=== PATIENT | female | born 1995 | race Caucasian/White ===

== ENCOUNTER 2017-07-23 08:55 | Outpatient (CLI) | payer MEDICAID ==
--- NOTE | 2017-07-23 09:49 | Non Stress Test Report ---
Non Stress Test Datetime Report Generated by CPN: 07/23/2017 09:48 DEMOGRAPHIC EGA NST: 38.3 INDICATION Indication for Study: Ordered by Provider MONITORING Monitor Explained: Monitor Explained; Patient Verbalized Understanding Time on Monitor: 07/23/2017 09:11 Time off Monitor: 07/23/2017 09:38 NST Duration: 27 NST INTERVENTIONS NST Interventions: PO Hydration; Reposition Patient Physician Notified NST: C.Suggs, CNM BABY A: [id number] BABY A Movement : Present Contraction Frequency : 12 FHR Baseline : 135 Accelerations : 15X15 Decelerations : None Variability : Moderate 6-25bpm NST Review: Meets Criteria for Reactive NST NST Review and Verified By : PETER WORRELL Results: Reactive NST REPORT Report Trigger: Send Report
[2017-07-23 10:06] LABS: APPEARANCE,URINE SLIGHTLY-CLOUDY; BILIRUBIN,URINE NEGATIVE (NEGATIVE); COLOR,URINE YELLOW; GLUCOSE, URINE NEGATIVE (NEGATIVE); KETONES,URINE NEGATIVE (NEGATIVE); LEUKOCYTE ESTERASE,URINE SMALL (NEGATIVE); NITRITE,URINE NEGATIVE (NEGATIVE); PROTEIN,URINE NEGATIVE (NEGATIVE); URINE SPECIFIC GRAVITY 1.012; UROBILINOGEN,URINE NEGATIVE mg/dL (<2.0)
[2017-07-23 10:18] LABS: ABSOLUTE LYMPHOCYTES (AUTO) 1.2 10^3/uL (0.5-4.7); ABSOLUTE MONOCYTES (AUTO) 0.7 10^3/uL (0.1-1.4); ABSOLUTE NEUT (AUTO) 5.8 10^3/uL (1.7-8.2); BASOPHILS % (AUTO) 0.2 % (0-2); EOSINOPHILS % (AUTO) 0.2 % (0-6); HEMATOCRIT 31.9 % (36.0-47.0); HEMOGLOBIN 10.9 g/dL (12.0-15.5); LYMPHOCYTES % (AUTO) 15.2 % (13-45); MEAN CORPUSCULAR HEMOGLOBIN 31.6 pg (27.0-33.4); MEAN CORPUSCULAR VOLUME 93 fl (80-97); MONOCYTES % (AUTO) 8.5 % (3-13); PLATELET COUNT 203 10^3/uL (150-450); RED BLOOD COUNT 3.44 10^6/uL (3.72-5.28); RED CELL DISTRIBUTION WIDTH 14.2 % (11.5-14.0); SEGMENTED NEUTROPHILS % (AUTO) 75.9 % (42-78); TOTAL CELLS COUNTED % (AUTO) 100 %; WHITE BLOOD COUNT 7.6 10^3/uL (4.0-10.5)
[2017-07-23 10:27] LABS: URINE AMPHETAMINES SCREEN NEGATIVE; URINE BARBITURATES SCREEN NEGATIVE; URINE BENZODIAZEPINES SCREEN NEGATIVE; URINE COCAINE SCREEN NEGATIVE; URINE MARIJUANA (THC) SCREEN NEGATIVE; URINE METHADONE SCREEN NEGATIVE; URINE PHENCYCLIDINE SCREEN NEGATIVE
[2017-07-23 10:33] LABS: UR PRO/CREAT RATIO RESULT 0.1 mg/mg (0.0-0.2); URINE CREATININE 84.3 mg/dL (16-327); URINE PROTEIN 11.6 mg/dL (<12)
[2017-07-23 10:37] LABS: ALANINE AMINOTRANSFERASE 28 U/L (9-52); ALBUMIN 3.3 g/dL (3.5-5.0); ALKALINE PHOSPHATASE 141 U/L (38-126); ANION GAP 11 (5-19); ASPARTATE AMINO TRANSFERASE 24 U/L (14-36); BILIRUBIN,DIRECT 0.2 mg/dL (0.0-0.4); BILIRUBIN,TOTAL 0.2 mg/dL (0.2-1.3); BLOOD UREA NITROGEN 5 mg/dL (7-20); CALCIUM 8.9 mg/dL (8.4-10.2); CARBON DIOXIDE 23 mmol/L (22-30); CHLORIDE 107 mmol/L (98-107); GLUCOSE 75 mg/dL (75-110); LDH 440 U/L (313-618); SODIUM 141.3 mmol/L (137-145)
[2017-07-23 10:38] LABS: POTASSIUM 4.4 mmol/L (3.6-5.0)
== END 2017-07-23 11:02 | disposition home or self-care (01) ==
LOC: LC 08:55
PROVIDERS: ATTEND Obstetrics & Gynecology
PROC: 4A1HXCZ Monitoring of Products of Conception, Cardiac Rate, External Approach (ICD-10-PCS; principal; 2017-07-23)
DX: O47.1 False labor at or after 37 completed weeks of gestation (principal); O13.3 Gestational [pregnancy-induced] hypertension without significant proteinuria, third trimester; Z3A.38 38 weeks gestation of pregnancy
CPT/HCPCS: 36415; 59025; 80053; 80307; 81005; 82570; 83615; 84156; 84550; 85025

== ENCOUNTER 2017-08-01 19:40 | Inpatient (IN) | payer MEDICAID ==
[2017-08-01 20:14] LABS: APPEARANCE,URINE SLIGHTLY-CLOUDY; BILIRUBIN,URINE NEGATIVE (NEGATIVE); COLOR,URINE YELLOW; GLUCOSE, URINE NEGATIVE (NEGATIVE); KETONES,URINE TRACE mg/dL (NEGATIVE); LEUKOCYTE ESTERASE,URINE SMALL (NEGATIVE); NITRITE,URINE NEGATIVE (NEGATIVE); PROTEIN,URINE NEGATIVE (NEGATIVE); URINE SPECIFIC GRAVITY 1.016; UROBILINOGEN,URINE NEGATIVE mg/dL (<2.0)
[2017-08-01 20:33] LABS: URINE AMPHETAMINES SCREEN NEGATIVE; URINE BARBITURATES SCREEN NEGATIVE; URINE BENZODIAZEPINES SCREEN NEGATIVE; URINE COCAINE SCREEN NEGATIVE; URINE MARIJUANA (THC) SCREEN NEGATIVE; URINE METHADONE SCREEN NEGATIVE; URINE PHENCYCLIDINE SCREEN NEGATIVE
[2017-08-01 20:50] LABS: ABSOLUTE EOSINOPHILS # (AUTO) 0.1 10^3/uL (0.0-0.6); ABSOLUTE LYMPHOCYTES (AUTO) 1.6 10^3/uL (0.5-4.7); ABSOLUTE MONOCYTES (AUTO) 0.7 10^3/uL (0.1-1.4); ABSOLUTE NEUT (AUTO) 6.1 10^3/uL (1.7-8.2); BASOPHILS % (AUTO) 0.2 % (0-2); EOSINOPHILS % (AUTO) 0.9 % (0-6); HEMATOCRIT 30.7 % (36.0-47.0); HEMOGLOBIN 10.5 g/dL (12.0-15.5); MEAN CORPUSCULAR HEMOGLOBIN 32.2 pg (27.0-33.4); MEAN CORPUSCULAR HGB CONC 34.3 g/dL (32.0-36.0); MEAN CORPUSCULAR VOLUME 94 fl (80-97); MONOCYTES % (AUTO) 8.2 % (3-13); PLATELET COUNT 205 10^3/uL (150-450); RED BLOOD COUNT 3.27 10^6/uL (3.72-5.28); SEGMENTED NEUTROPHILS % (AUTO) 71.7 % (42-78); TOTAL CELLS COUNTED % (AUTO) 100 %; WHITE BLOOD COUNT 8.5 10^3/uL (4.0-10.5)
[2017-08-01 21:16] LABS: ALANINE AMINOTRANSFERASE 32 U/L (9-52); ALBUMIN 3.3 g/dL (3.5-5.0); ALKALINE PHOSPHATASE 160 U/L (38-126); ANION GAP 12 (5-19); ASPARTATE AMINO TRANSFERASE 28 U/L (14-36); BILIRUBIN,DIRECT 0.2 mg/dL (0.0-0.4); BILIRUBIN,TOTAL 0.2 mg/dL (0.2-1.3); BLOOD UREA NITROGEN 8 mg/dL (7-20); CALCIUM 8.9 mg/dL (8.4-10.2); CARBON DIOXIDE 22 mmol/L (22-30); CHLORIDE 108 mmol/L (98-107); GLUCOSE 96 mg/dL (75-110); LDH 484 U/L (313-618); POTASSIUM 4.7 mmol/L (3.6-5.0); SODIUM 142.2 mmol/L (137-145); TOTAL PROTEIN 5.8 g/dL (6.3-8.2); URIC ACID 5.3 mg/dL (2.5-6.2)
[2017-08-01] MEDS ORDERED: DINOPROSTONE 10 MG VAGINAL INSERT.SR PV ONE (21:25)
[2017-08-01] MEDS ORDERED: RINGERS SOLUTION,LACTATED 300 ML IV ONE (21:26)
[2017-08-01] MEDS: RINGERS SOLUTION,LACTATED 1,000 ML IV PRN ×2 (21:26→21:41)
[2017-08-01] MEDS ORDERED: DINOPROSTONE 10 MG VAGINAL INSERT.SR ONE (21:32)
[2017-08-01 21:49] LABS: RUBELLA INTERPRETATION POSITIVE
[2017-08-02] MEDS ORDERED: DIPHENHYDRAMINE HCL 25 MG CAPSULE ONE (09:49)
--- NOTE | 2017-08-02 10:43 | Admission Physical ---
Datetime Report Generated by CPN: 08/02/2017 10:43 CURRENT ADMISSION Hx Assessment: The History has been Reviewed and is Current Chief Complaint: Scheduled Induction of Labor Indication for Induction: Gestational HTN Admit Impression : Term, Intrauterine ; No Active Labor; Intact Membranes; Induction of Labor Admit Plan: Admit to Unit; Initiate Labor Induction Protocol ALLERGIES Medication Allergies: Yes Medication Allergies: vancomycin (08/01/2017) Latex: No Latex Allergies Food Allergies: N/A Environmental Allergies: N/A OBSTETRICAL HISTORY EDC: 08/02/2017 00:00 : 2 Para: 1 Term: 1 : 0 SAB: 0 IAB: 0 Ectopic: 0 Livin Cesareans: 0 VBACs: 0 Multiple Births: 0 Gestational Diabetes: No Rh Sensitization: No Incompetent Cervix: No SHANEKA: No Infertility: No ART Treatment: No Uterine Anomaly: No IUGR: No Hx Previous C/S: No Macrosomia: No Hx Loss/Stillborn: No PIH: No Hx : No Placenta Previa/Abruption: No Depression/PP Depression: No PTL/PROM: No Post Hemorrhage: No Current Procedures: Ultrasound Obstetrical History Comments: G1 - 2015, , Girl, 41.1 weeks G2 - Current SEE RECORDS Alcohol: No Marijuana : No Cocaine: No Other Illicit Drugs: No Cigarettes: Never Smoker. [id number] MEDICAL HISTORY Diabetes: No Blood Transfusion: No Pulmonary Disease (Asthma, TB): No Breast Disease: No Hypertension: No Customer Service Coordinator Surgery: No Heart Disease: No Hosp/Surgery: Yes Autoimmune Disorder: No Anesthetic Complications: No Kidney Disease: No Abnormal Pap Smear: No Neuro/Epilepsy: No Psychiatric Disorders: Yes Other Medical Diseases: No Hepatitis/Liver Disease: No Significant Family History: No Varicosities/Phlebitis: No Trauma/Violence : No Thyroid Dysfunction: No Medical History Comments: Childbirth; Anxiety; INFECTIOUS HISTORY Gonorrhea: No Genital Herpes: No Chlamydia: No Tuberculosis: No Syphilis: No Hepatitis: No HIV/AIDS Exposure: No Rash or Viral Illness: No HPV: No PHYSICAL EXAM General: Normal HEENT: Normal Neurologic: Normal Thyroid: Deferred Heart: Normal Lungs: Normal Breast: Normal Back: Normal Abdomen: Normal Genitourinary Exam: Normal Extremities: Normal DTRs: Normal Pelvic Type: Adequate Physical Exam Comments: pelvis proven 9lbs 14 Vital Signs: Reviewed VAGINAL EXAM Dilatation: 1 Contraction Comments: irreg MEMBRANES Membranes: Intact FETUS A EGA: 40.0 Monitoring: External US FHR- Baseline: 125 Variability: Moderate 6-25bpm Accelerations: 15X15 Decelerations: None FHR Category: Category I Estimated Weight (gm): 4000 Presentation: Vertex Admit Comment: Admit to L _ D, scheduled IOL GHTN Hx anxiety, no meds Denies headache, epigastric pain, or visual disturbances. States active baby, occassional ctx, denies leaking, denies bleeding Pt plans to use hypnobirthing to cope with ctx, will use cooks cath for cervical ripening after cervidil, and slow pit. Anticiate , monitor of stymptoms of elevated bp. GBS neg PLANS FOR LABOR AND DELIVERY Labor and Delivery: None Pain Management: Natural Feeding Preference: Breast Benefit of Breast Feed Discussed: Yes Circumcision: Yes INFORMED CONSENT Assignment: Stefani Trivedi MD Signature: with User ID: Madonna : with User ID: Madonna
--- NOTE | 2017-08-02 11:43 | L&D Progress Notes ---
PROGRESS NOTES Datetime Report Generated by CPN: 08/02/2017 11:43 PROGRESS NOTE Impression: Reassuring Heart Rate Procedures: Sterile Vag Exam Procedures- Other: cooks cath placed Plan: Induction Vital Signs : Reviewed Comment: coping well cooks cath placed cat 1 fht VAGINAL EXAM Dilatation: 1 Contractions: irreg MEMBRANES Membranes: Intact FETUS A FHR - Baseline: 125 Monitoring: External US Variability: Moderate 6-25bpm Accelerations: 15X15 Decelerations: None FHR Category: Category I Estimated Weight (gm): 4000 Presentation: Vertex SIGNATURE SIGNATURE: [id number] SIGNATURE: [id number] SIGNATURE: [id number] Assignment: Stefani Trivedi MD Signature: with User ID: [email or web address] : with User ID: [email or web address]
[2017-08-02] MEDS ORDERED: OXYTOCIN/NORMAL SALINE 40 UNIT/2,000 ML RTUINJ ONE (14:05)
[2017-08-02] MEDS ORDERED: LIDOCAINE 1% INJ-PF (10 MG/ML) 30 ML SDV ONE (14:05)
[2017-08-02] MEDS ORDERED: MISOPROSTOL 0.2 MG TABLET ONE (14:05)
--- NOTE | 2017-08-02 15:14 | L&D Progress Notes ---
PROGRESS NOTES Datetime Report Generated by CPN: 08/02/2017 15:14 PROGRESS NOTE Impression: Normal Progression of Labor; Reassuring Heart Rate Procedures: Sterile Vag Exam Procedures- Other: cooks cath out Plan: Continue Present Management Informed Consent Obtained: Vaginal Delivery Comment: pt coping well, breathing with ctx. Cooks cath out Pitocin @ 2 mu SVE as above SROM during exam, clear Continue present mgmt VAGINAL EXAM Dilatation: 7 Effacement: 80 Station: 0 Contractions: 2-3 MEMBRANES Membranes: Ruptured Amniotic Fluid Color: Clear FETUS A FHR - Baseline: 135 Monitoring: External US Variability: Moderate 6-25bpm Accelerations: 15X15 Decelerations: None FHR Category: Category I FETUS C SIGNATURE: [id number];[id number];[id number] Assignment: Stefani Trivedi MD Signature: with User ID: [email or web address] : with User ID: [email or web address]
[2017-08-02] MEDS ORDERED: FENTANYL CITRATE INJ/PF 100 MCG/2 ML AMPUL ONE (18:43)
[2017-08-02] MEDS ORDERED: MEASLES,MUMPS&RUBELLA VACC/PF 0.5 ML VIAL SUBCUT PRN (19:07)
[2017-08-02] MEDS ORDERED: BENZOCAINE/MENTHOL AEROSOL SPRAY 56 ML TOP PRN (19:07)
[2017-08-02] MEDS ORDERED: DIPH/PERTUSS(ACELL)/TETANUS VAC/PF 0.5 ML SYR (>=10YO) IM PRN (19:07)
[2017-08-02] MEDS ORDERED: DIBUCAINE 1% OINTMENT 28 GM TP PRN (19:07)
[2017-08-02] MEDS ORDERED: ZOLPIDEM TARTRATE 5 MG TABLET PO PRN (19:07)
[2017-08-02] MEDS ORDERED: OXYTOCIN/NORMAL SALINE 20 UNIT/1,000 ML RTUINJ IV PRN (19:07)
[2017-08-02] MEDS ORDERED: ACETAMINOPHEN WITH CODEINE #3 TABLET PO PRN ×2 (19:07)
[2017-08-03] MEDS: IBUPROFEN 800 MG TABLET PO SCH ×4 (03:08→22:49)
[2017-08-03 08:18] LABS: HEMATOCRIT 28.5 % (36.0-47.0); HEMOGLOBIN 9.6 g/dL (12.0-15.5); MEAN CORPUSCULAR HEMOGLOBIN 31.9 pg (27.0-33.4); MEAN CORPUSCULAR HGB CONC 33.9 g/dL (32.0-36.0); MEAN CORPUSCULAR VOLUME 94 fl (80-97); PLATELET COUNT 173 10^3/uL (150-450); RED BLOOD COUNT 3.03 10^6/uL (3.72-5.28); RED CELL DISTRIBUTION WIDTH 15.1 % (11.5-14.0); WHITE BLOOD COUNT 10.1 10^3/uL (4.0-10.5)
[2017-08-03] MEDS: DOCUSATE SODIUM 100 MG CAPSULE PO SCH ×2 (09:23→17:03)
[2017-08-03] MEDS: SENNOSIDES/DOCUSATE 8.6-50 MG 1 EACH TABLET PO SCH (09:24)
[2017-08-03] MEDS: FERROUS SULFATE 325 MG TABLET PO SCH ×2 (09:24→17:03)
[2017-08-03] MEDS: PRENATAL VITAMIN W DHA CAPSULE PO SCH (09:24)
--- NOTE | 2017-08-03 11:26 | PDOC PROGRESS REPORT ---
Subjective-OB Progress Note for:: 08/03/17 Subjective: s/p DAy #1 Doing well, states lochia stable, pain well controlled, voiding without difficulty. Bonding well with baby. Physical Exam (OB) Vital Signs: Temp Pulse Resp BP Pulse Ox 98.1 F 71 17 116/72 97 08/03/17 07:54 08/03/17 07:54 08/03/17 07:54 08/03/17 07:54 08/03/17 07:54 Intake & Output 08/02/17 08/03/17 08/04/17 06:59 06:59 06:59 Intake Total 480 Balance 480 Weight 83 kg - Lochia Lochia Amount: Scant < 10 ml Lochia Color: Rubra/Red - Abdomen Description: Tender, Soft, Round Hernia Present: No Fundal Description: Firm, Midline Fundal Height: u/u - u/2 Objective-Diagnostic Laboratory: 08/03/17 06:52 08/01/17 20:30 08/03/17 06:52 WBC 10.1 RBC 3.03 L Hgb 9.6 L Hct 28.5 L MCV 94 MCH 31.9 MCHC 33.9 RDW 15.1 H Plt Count 173 Assessment and Plan(PN) - Assessment and Plan (1) Acute blood loss anemia Is this a current diagnosis for this admission?: Yes Plan: ferrous sulfate increase dietary iron (2) Gestational [-induced] hypertension without significant proteinuria , complicating childbirth Is this a current diagnosis for this admission?: Yes - Time Spent with Patient Time with patient: Less than 15 minutes Critical Time spent with patient: Less than 15 minutes Medications reviewed and adjusted accordingly: Yes - Disposition Anticipated Discharge: Home Within: within 24 hours
[2017-08-03 12:58] LABS: HEPATITS B SURFACE ANTIGEN Negative (Negative)
[2017-08-04] MEDS: IBUPROFEN 800 MG TABLET PO SCH (06:50)
[2017-08-04] MEDS: PRENATAL VITAMIN W DHA CAPSULE PO SCH (09:28)
[2017-08-04] MEDS: SENNOSIDES/DOCUSATE 8.6-50 MG 1 EACH TABLET PO SCH (09:29)
[2017-08-04] MEDS: FERROUS SULFATE 325 MG TABLET PO SCH (09:29)
[2017-08-04] MEDS: DOCUSATE SODIUM 100 MG CAPSULE PO SCH (09:29)
--- NOTE | 2017-08-04 10:10 | PDOC DISCHARGE SUMMARY ---
Final Diagnosis Discharge Date: 08/04/17 - Final Diagnosis (1) Acute blood loss anemia Is this a current diagnosis for this admission?: Yes (2) Gestational [-induced] hypertension without significant proteinuria , complicating childbirth Is this a current diagnosis for this admission?: Yes (3) Vaginal delivery Is this a current diagnosis for this admission?: Yes Discharge Data - Discharge Medication Prescriptions: Docusate Sodium [Colace 100 mg Capsule] 100 mg PO BID #60 capsule Ferrous Sulfate [Feosol 325 mg Tablet] 325 mg PO BID #60 tablet Ibuprofen [Motrin 800 mg Tablet] 800 mg PO Q8 #60 tablet Home Medications: No122/Iron/Folic Acid [ Multi Tablet] 1 each PO DAILY 07/23/17 Docusate Sodium [Colace 100 mg Capsule] 100 mg PO BID #60 capsule 08/04/17 Ferrous Sulfate [Feosol 325 mg Tablet] 325 mg PO BID #60 tablet 08/04/17 Ibuprofen [Motrin 800 mg Tablet] 800 mg PO Q8 #60 tablet 08/04/17 Gestational Age: 40 Reason(s) for Admission: Induction of Labor, PIH Procedures: NST Intrapartum Procedure(s): Spontaneous Vaginal Delivery - Data Baby 1 Male Home with Mother: Yes Complications: No - Diagnosis Test Laboratory: Temp Pulse Resp BP Pulse Ox 97.8 F 72 16 116/77 98 08/04/17 07:20 08/04/17 07:20 08/04/17 07:20 08/04/17 07:20 08/04/17 07:20 08/01/17 08/01/17 08/03/17 19:50 20:30 06:52 RBC 3.27 L 3.03 L Hgb 10.5 L 9.6 L Hct 30.7 L 28.5 L Urine Opiates Screen NEGATIVE - Discharge information/Instructions Discharge Activity: Activity As Tolerated, Pelvic Rest, No tub bath Discharge Diet: Regular Disposition: HOME, SELF-CARE Follow up with: [facility] in: 1, Weeks
[2017-08-04 10:22] VITALS: BP 116/72
--- NOTE | 2017-08-12 08:50 | Delivery Summary ---
Del Sum A-C Datetime Report Generated by CPN: 08/12/2017 08:50 DELIVERY PERSONNEL DELIVERY PERSONNEL: [id number] Nurse Avionics Systems Repairer Certified:: Juli Haywood CNM Labor and Delivery Nurse:: Annabelle Pearson RN Sugar Laboratory Assistant:: Almamonae Brothers, RNC MATERNAL INFORMATION Delivery Anesthesia: None Medications After Delivery: Pitocin Drip 20 Units/1000ml NSS Estimated Blood Loss (ml): 75 Maternal Complications: Other Other Maternal Complications: pre eclampsia Provider Comments: Pt progressed to C/100/+1, pushed well with ctx, of viable male infant, head delivered, loose nuchal noted, delivered through, infant with spontaneous cry and respirations, to maternal abdomen, cord clamped X2, infant cut free after 2 min delay, spontaneous delivery of placenta via ivan mechanism, appears intact, 3 VC, vagina and perineum inspected, no lacerations noted, hemostasis acheived with external fundal massage IV pitocin, routine pp care. Mother and in stable condition. LABOR SUMMARY EDC: 08/02/2017 00:00 No. Babies in Womb: 1 Attempted: No Labor Anesthesia: None LABOR INFORMATION Reason for Induction: Gestational Hypertension Onset of Labor: 08/02/2017 10:46 Complete Dilatation: 08/02/2017 18:45 Cervical Ripening Agents: Cervidil Oxytocin: Induction Group B Beta Strep: Negative Antibiotics # of Doses: 0 Antibiotics Time of Last Dose: N/A Name of Antibiotic Given: N/A Steroids Given: None Reason Steroids Not Administered: Not Applicable Other Reason Not Administered: N/A MEMBRANES Membranes Rupture Method: Spontaneous Rupture of Membranes: 08/02/2017 15:04 Length of Rupture (hr): 3.83 Amniotic Fluid Color: Clear Amniotic Fluid Amount: Moderate Amniotic Fluid Odor: Normal STAGES OF LABOR Stage 1 hr: 7 Stage 1 min: 59 Stage 2 hr: 0 Stage 2 min: 9 Stage 3 hr: 0 Stage 3 min: 4 Total Time in Labor hr: 8 Total Time in Labor min: 12 VAGINAL DELIVERY Episiotomy: None Laceration #1: None Laceration Extension #1: N/A Laceration Repair: Not Applicable Laceration Repair Note: n/a Sponge Count Correct: N/A Sharps Count Correct: N/A CSECTION DELIVERY CSection Incision: N/A BABY A INFORMATION Delivery Date/Time: 08/02/2017 18:54 Method of Delivery: Vaginal Born in Route : No : N/A Forceps: N/A Vacuum Extraction: N/A Shoulder Dystocia : No PRESENTATION/POSITION BABY A Presentation: Cephalic Cephalic Presentation: Vertex Vertex Position: Left Occipital Anterior Breech Presentation: N/A PLACENTA INFORMATION BABY A Placenta Delivery Time : 08/02/2017 18:58 Placenta Method of Delivery: Spontaneous Placenta Method of Delivery: Spontaneous Placenta Status: Delivered SCORES BABY A Heart Rate 1 min: >100 bpm Resp Effort 1 min: Good Cry Reflex Irritability 1 min: Cough or Sneeze or Pulls Away Muscle Tone 1 min: Active Motion Color 1 min: Body Coker, Extremities Blue SCORE 1 MIN: 9 Heart Rate 5 min: >100 bpm Resp Effort 5 min: Good Cry Reflex Irritability 5 min: Cough or Sneeze or Pulls Away Muscle Tone 5 min: Active Motion Color 5 min: Body Coker, Extremities Blue SCORE 5 MIN: 9 INFANT INFORMATION BABY A Gestational Age at Delivery: 40.0 Gestational Status: Full Term- 39- 40.6 Weeks Outcome : Liveborn Infant Condition : Stable Infant Sex: Male IDENTIFICATION BABY A Verification Date/Time: 08/02/2017 19:05 ID Band Number: [id number] Mother's Name Verified: Yes RN Verifying : Krystyna Camp RNC Additional Verifying Personnel: [employer] US WEIGHT/LENGTH BABY A Birthweight (gm): 4090 Infant Weight (lb): 9 Infant Weight (oz): 0 Infant Length (in): 21.00 Length (cm): 53.34 CORD INFORMATION BABY A No. Cord Vessels: 3 Nuchal Cord : N/A Cord Blood Taken: Yes-For Eval (Mom's Blood Type - or O+) Suction: None ASSESSMENT BABY A Infant Complications: None Physical Findings at Delivery: Within Normal Limits Infant Respirations: Appears Normal Skin to Skin: Yes Skin to Skin: Yes Skin to Skin: Yes Ict Analyst/ALS Called : No Transferred To: Remains with Mother BABY B INFORMATION : N/A SIGNATURES Assignment: Stefani Trivedi MD Signature: with User ID: Madonna : with User ID: Madonna
== END 2017-08-04 12:09 | disposition home or self-care (01) | DRG 775 ==
LOC: LR 19:40 → 2S 08-02 21:18
PROVIDERS: ADMIT Student in an Organized Health Care Education/Training Program; ATTEND Student in an Organized Health Care Education/Training Program
PROC: 10E0XZZ Delivery of Products of Conception, External Approach (ICD-10-PCS; principal; 2017-08-02)
DX: O13.4 Gestational [pregnancy-induced] hypertension without significant proteinuria, complicating childbirth (principal); D62 Acute posthemorrhagic anemia; O14.94 Unspecified pre-eclampsia, complicating childbirth; O69.81X0 Labor and delivery complicated by cord around neck, without compression, not applicable or unspecified; O90.81 Anemia of the puerperium; Z3A.40 40 weeks gestation of pregnancy; Z37.0 Single live birth
CPT/HCPCS: 36415; 80053; 80307; 81005; 83615; 84550; 85025; 85027; 86592; 86762; 86850; 86900; 86901; 87340; C1726; J2590; J3010; J3490